=== PATIENT | female | born 1995 | race Caucasian/White ===

== ENCOUNTER 2016-09-23 20:38 | Emergency (ER) | payer BC, MEDICAID ==
[~2016-09-23 20:38] MED LIST: MACR100C PO
[2016-09-23 20:41] VITALS: BP 135/92; PULSE 93; RESP 20; TEMP 98.8; O2SAT 99
[2016-09-23] MEDS ORDERED: SODIUM CHLOR 0.9% 1000 ML INJ 1,000 ML IV SCH (21:01)
--- NOTE | 2016-09-23 21:07 | PD ---
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 Pain is localized in right flank and nonradiating. +Urinary symptoms including dysuria, increased urinary frequency. +NBNB vomiting. Denies any fever, chest pain, sob, vaginal bleeding or discharge. Pt has had frequent UTIs in the past. PFSH Past Medical History ADHD: No Cancer: No Cardiovascular Problems: No Diabetes: No Psychiatric: Yes (depression) Immunizations Current: Yes Migraines: No Seizures: No Thyroid Disease: No Ulcer: No Tetanus Vaccination: Never Vaccinated Influenza Vaccination: Yes ?: Not LMP: 08/24/16 Past Surgical History Endocrine Surgery: Yes (KIDNEY REMOVED A TODDLER R/T MULTIPLE CYSTS/ ENLARGED -NON FUNCTIONAL) Oral Surgery: Yes (WISDOM TEETH) Other Surgery: No (ONE KIDNEY REMOVED WITH CYSTS 1996) Social History Alcohol Use: Yes (OCC) Tobacco Use: Yes Substance Use: Yes (MARIJUANA ocassional) Allergies-Medications (Allergen,Severity, Reaction): Coded Allergies: No Known Allergies (Unverified , 09/23/16) Reported Meds & Prescriptions Reported Meds & Active Scripts Active Acetaminophen Extra Strength (Acetaminophen) 500 Mg Tab 500 Mg PO Q6H PRN Cipro (Ciprofloxacin HCl) 500 Mg Tab 500 Mg PO BID 10 Days Review of Systems Except as stated in HPI: all other systems reviewed are Neg Physical Exam Narrative GENERAL: 21yo F not in distress. SKIN: Warm and dry. HEAD: Atraumatic. Normocephalic. EYES: Pupils equal and round. No scleral icterus. No injection or drainage. CARDIOVASCULAR: Regular rate and rhythm. No murmur appreciated. RESPIRATORY: No accessory muscle use. Clear to auscultation. Breath sounds equal bilaterally. GASTROINTESTINAL: Abdomen soft, +Suprapubic ttp. +RLQ ttp. No rebound tenderness or guarding. MUSCULOSKELETAL: No obvious deformities. No clubbing. No cyanosis. No edema. BACK: +CVA tenderness on right. NEUROLOGICAL: Awake and alert. No obvious cranial nerve deficits. Motor grossly within normal limits. Normal speech. PSYCHIATRIC: Appropriate mood and affect; insight and judgment normal. Data Data Last Documented VS Vital Signs Date Time Temp Pulse Resp B/P Pulse Ox O2 Delivery O2 Flow Rate FiO2 09/23/16 23:24 64 16 125/63 98 Room Air 09/23/16 20:41 98.8 Orders Complete Blood Count With Diff (09/23/16 21:01) Comprehensive Metabolic Panel (09/23/16 21:) Lipase (09/23/16 21:) Prothrombin Time / Inr (Pt) (09/23/16 21:01) Act Partial Throm Time (Ptt) (09/23/16 21:01) Urinalysis - C+S If Indicated (09/23/16 21:) Iv Access Insert/Monitor (09/23/16 21:) Ecg Monitoring (09/23/16 21:) Oximetry (09/23/16 21:01) Ondansetron Inj (Zofran Inj) (09/23/16 21:15) Sodium Chlor 0.9% 1000 Ml Inj (Ns 1000 M (09/23/16 21:01) Sodium Chloride 0.9% Flush (Ns Flush) (09/23/16 21:15) Ed Urine Pregnancytest Poc (09/23/16 21:01) Urine Culture (09/23/16 21:09) Ct Abd/Pel W/O Iv Contrast (09/23/16 ) Morphine Inj (Morphine Inj) (09/23/16 22:30) Ceftriaxone Inj (Rocephin Inj) (09/24/16 00:15) Labs Laboratory Tests Test 09/23/16 21:09 White Blood Count 15.0 TH/MM3 Red Blood Count 4.71 MIL/MM3 Hemoglobin 10.5 GM/DL Hematocrit 33.5 % Mean Corpuscular Volume 71.2 FL Mean Corpuscular Hemoglobin 22.4 PG Mean Corpuscular Hemoglobin 31.4 % Concent Red Cell Distribution Width 16.6 % Platelet Count 206 TH/MM3 Mean Platelet Volume 10.1 FL Neutrophils (%) (Auto) 67.0 % Lymphocytes (%) (Auto) 21.4 % Monocytes (%) (Auto) 6.1 % Eosinophils (%) (Auto) 2.5 % Basophils (%) (Auto) 3.0 % Neutrophils # (Auto) 10.1 TH/MM3 Lymphocytes # (Auto) 3.2 TH/MM3 Monocytes # (Auto) 0.9 TH/MM3 Eosinophils # (Auto) 0.4 TH/MM3 Basophils # (Auto) 0.4 TH/MM3 CBC Comment AUTO DIFF Differential Comment AUTO DIFF CONFIRMED Platelet Estimate NORMAL Platelet Morphology Comment NORMAL Ovalocytes 2+ Prothrombin Time 11.4 SEC Prothromb Time International 1.0 RATIO Ratio Activated Partial 23.9 SEC Thromboplast Time Urine Collection Type VOIDED Urine Color YELLOW Urine Turbidity CLEAR Urine pH 6.0 Urine Specific [place] 1.016 Urine Protein TRACE mg/dL Urine Glucose (UA) NEG mg/dL Urine Ketones NEG mg/dL Urine Occult Blood NEG Urine Nitrite NEG Urine Bilirubin NEG Urine Leukocyte Esterase NEG Urine WBC 9-14 /hpf Urine WBC Clumps RARE Urine Squamous Epithelial 0-2 /hpf Cells Urine Bacteria RARE /hpf Microscopic Urinalysis Comment CULTURE INDICATED Sodium Level 141 MEQ/L Potassium Level 3.6 MEQ/L Chloride Level 106 MEQ/L Carbon Dioxide Level 25.4 MEQ/L Anion Gap 10 MEQ/L Blood Urea Nitrogen 11 MG/DL Creatinine 0.92 MG/DL Estimat Glomerular Filtration 78 ML/MIN Rate Random Glucose 105 MG/DL Calcium Level 9.0 MG/DL Total Bilirubin 0.4 MG/DL Aspartate Amino Transf 16 U/L (AST/SGOT) Alanine Aminotransferase 17 U/L (ALT/SGPT) Alkaline Phosphatase 77 U/L Total Protein 7.3 GM/DL Albumin 3.6 GM/DL Lipase 117 U/L [facility] Medical Decision Making Medical Screen Exam Complete: Yes Emergency Medical Condition: Yes Differential Diagnosis Pyelonephritis vs. nephrolithiasis vs. appendicitis Narrative Course 21yo F presents with right flank pain for 2 weeks. Urine negative. Labs reviewed, leukocytosis at 15.0. CMP unremarkable. Lipase normal. Creatinine normal. UA showed rare WBC and WBC or 9-14. Pt given ceftriaxone 1gm IV. Pt reevaluated at bedside after morphine and zofran and still had RLQ tenderness. Urine negative. CTa/p showed no evidence of hydronephrosis or calcified stone right kidney. Left nephrectomy. Discussed with radiologist and appendix appears normal. Pt reevaluated at bedside and abdominal pain has improved. Return precautions given. Pt is well appearing and can follow up with PMD. Diagnosis Primary Impression: Pyelonephritis Patient Instructions: General Instructions Departure Forms: Tests/Procedures Additional Instructions: Please follow up with your PMD in 1-2 days. Return to the ED if symptoms worsen. Med/Other Pt SpecificInfo: Prescription(s) given Scripts Acetaminophen (Acetaminophen Extra Strength)500 Mg [id number] Mg PO Q6H PRN (PAIN SCALE 1 TO 4) #20 TAB Ref 0 Prov:Ladonna Guevara DO 09/24/16 Ciprofloxacin (Cipro)500 Mg [id number] Mg PO BID 10 Days Ref 0 Prov:Ladonna Guevara DO 09/24/16 Disposition: 01 DISCHARGE HOME Condition: Stable Ladonna Guevara DO Sep 23, 2016 21:07
[2016-09-23] MEDS ORDERED: ONDANSETRON HCL 4 MG/2 ML VIAL IVP ONE (21:15)
[2016-09-23] MEDS ORDERED: SODIUM CHLORIDE 0.9% FLUSH 5 ML FLUSH IVF PRN (21:15)
[2016-09-23 21:42] LABS: BLOOD, URINE NEG (NEG); GLUCOSE,URINE NEG (NEG); KETONE, URINE NEG (NEG); NITRITE,URINE NEG (NEG)
[2016-09-23 21:49] LABS: AUTOMATED NEUTROPHIL # 10.1 TH/MM3 (1.8-7.7); BASOPHIL # 0.4 TH/MM3 (0-0.2); EOSINOPHIL # 0.4 TH/MM3 (0-0.4); EOSINOPHIL % 2.5 % (0.0-4.0); HEMATOCRIT 33.5 % (35.0-46.0); LYMPH % 21.4 % (9.0-44.0); LYMPHOCYTE # 3.2 TH/MM3 (1.0-4.8); MEAN CELL VOLUME 71.2 FL (80.0-100.0); MEAN CORPUSCULAR HEMOGLOBIN 22.4 PG (27.0-34.0); MEAN CORPUSCULAR HGB CONC 31.4 % (32.0-36.0); MONO % 6.1 % (0.0-8.0); PLATELET COUNT 206 TH/MM3 (150-450); RED BLOOD COUNT 4.71 MIL/MM3 (4.00-5.30); RED CELL DISTRIBUTION WIDTH 16.6 % (11.6-17.2)
[2016-09-23 21:53] LABS: HEMO FLAGS AUTO DIFF
[2016-09-23 21:54] LABS: CHLORIDE 106 MEQ/L (98-107); POTASSIUM 3.6 MEQ/L (3.5-5.1); SODIUM (NA) 141 MEQ/L (136-145)
[2016-09-23 21:59] LABS: ANION GAP 10 MEQ/L (5-15); BICARBONATE 25.4 MEQ/L (21.0-32.0); BLOOD UREA NITROGEN 11 MG/DL (7-18)
[2016-09-23 22:00] LABS: APTT (PATIENT) 23.9 SEC (24.3-30.1); PROTHROMBIN TIME - PATIENT 11.4 SEC (9.8-11.6)
[2016-09-23 22:01] LABS: AST (GOT) 16 U/L (16-38)
[2016-09-23 22:02] LABS: ALT (GPT) 17 U/L (9-42); GLOMERULAR FILTRATION RATE 78 ML/MIN (>89)
[2016-09-23 22:03] LABS: ALKALINE PHOSPHATASE 77 U/L (45-117); TOTAL BILIRUBIN ADULT 0.4 MG/DL (0.2-1.0)
[2016-09-23 22:21] LABS: METHOD OF COLLECTION VOIDED; URINE COLOR YELLOW (YELLW/STRAW)
[2016-09-23 22:23] LABS: BACTERIA, URINE RARE /hpf; COMMENT (UR) CULTURE INDICATED; CULTURE IF INDICATED CULTURE INDICATED; SQUAMOUS EPITHELIAL CELL URINE 0-2 /hpf (0-5)
[2016-09-23] MEDS ORDERED: MORPHINE SULFATE 4 MG/ML INJ IV PUSH ONE (22:30)
[2016-09-23 22:48] LABS: OVALOCYTES 2+ (NORMAL); PLATELET ESTIMATE SMEAR NORMAL (NORMAL); PLATELET MORPHOLOGY NORMAL (NORMAL); SCAN/DIFF AUTO DIFF CONFIRMED
[2016-09-23 22:51] VITALS: PULSE 85; O2SAT 99
[2016-09-23 23:24] VITALS: BP 125/63; PULSE 64; RESP 16; O2SAT 98
--- NOTE | 2016-09-24 00:06 | RADHPO ---
EXAM DATE/TIME: 09/23/2016 23:00 [facility] COMPARISON: No previous studies available for comparison. INDICATIONS : Right sided flank pain for two weeks. ORAL CONTRAST: No oral contrast ingested. RADIATION DOSE: 8.06 CTDIvol (mGy) MEDICAL HISTORY : None SURGICAL HISTORY : Nephrectomy, left. ENCOUNTER: Initial ACUITY: 2 weeks PAIN SCALE: 8/10 LOCATION: Right flank TECHNIQUE: Volumetric scanning of the abdomen and pelvis was performed. Using automated exposure control and ad justment of the mA and/or kV according to patient size, radiation dose was kept as low as reasonably achievable to obtain optimal diagnostic quality images. FINDINGS: LOWER LUNGS: The visualized lower lungs are clear. LIVER: Homogeneous density without lesion for noncontrast technique. There is no dilation of the biliary tr ee. No calcified gallstones. SPLEEN: Normal size without lesion. PANCREAS: Within normal limits. KIDNEYS: No evidence of hydronephrosis or calcified stone right kidney. Left nephrectomy. ADRENAL GLANDS: Within normal limits. VASCULAR: There is no aortic aneurysm. BOWEL/MESENTERY: The stomach, small bowel, and colon demonstrate no acute abnormality. There is no free intraperitone al air or fluid. ABDOMINAL WALL: Within normal limits. RETROPERITONEUM: There is no lymphadenopathy. BLADDER: No wall thickening or mass. REPRODUCTIVE: Uterus is anteverted toward the right. No evidence of free fluid. INGUINAL: There is no lymphadenopathy or hernia. MUSCULOSKELETAL: Within normal limits for patient age. CONCLUSION: No evidence of hydronephrosis or calcified stone right kidney. Left nephrectomy. Alberto Murray MD on September 24, 2016 at 0:02 Board Certified Radiologist. This report was verified electronically.
[2016-09-24] MEDS ORDERED: CIPR-9 PO (00:14)
[2016-09-24] MEDS ORDERED: cefTRIAXone INJ 1,000 MG in SODIUM CHLORIDE 0.9% INJ 100 ML IV ONE (00:15)
[2016-09-24] MEDS ORDERED: ACET500T36 PO (00:15)
== END 2016-09-24 01:18 | disposition home or self-care (01) ==
LOC: PHED 20:38
DX: N12 Tubulo-interstitial nephritis, not specified as acute or chronic (principal)
CPT/HCPCS: 74176; 80053; 81001; 83690; 84703; 85025; 85610; 85730; 87086; 96361; 96365; 96375; 99284; J0696; J2270; J2405; J7030